=== PATIENT | male | born 1945 | race Caucasian/White ===

== ENCOUNTER 2023-12-25 08:40 | Outpatient (CLI) | payer BC, SELFPAY ==
--- NOTE | ~2023-12-25 | XR_ITS ---
Right Shoulder Technique: AP and scapular Y views were obtained. Clinical History: Pain Findings: No fracture or dislocation is seen. Osseous alignment is anatomic. The glenohumeral and acr omioclavicular joint spaces are preserved. Soft tissues are unremarkable. Impression: Unremarkable right shoulder radiographs. Reviewed, dictated and finalized at [facility]. Impression: Unremarkable right shoulder radiographs.
== END 2023-12-25 08:41 | disposition home or self-care (01) ==
PROVIDERS: Visit Provider Orthopaedic Surgery
DX: M25.511 Pain in right shoulder (principal)
CPT/HCPCS: 73030

== ENCOUNTER 2024-01-14 09:49 | Outpatient (CLI) | payer BC, SELFPAY ==
--- NOTE | ~2024-01-14 | MR_ITS ---
EXAMINATION: MR shoulder RT wo con DATE: 01/14/2024 10:33 INDICATION: Right shoulder pain. TECHNIQUE: Magnetic resonance imaging (MRI) of the right shoulder was performed without intravenous c ontrast. Sequences included axial PD-weighted FS FSE, coronal oblique PD-weighted FS FSE and T2-weigh yarelis FS FSE, and sagittal oblique T2-weighted FS FSE and T1-weighted FSE. COMPARISON: Right shoulder radiographs 12/25/2023 FINDINGS: Coracoacromial arch: The acromion undersurface is curved in morphology (type II). There is severe acromioclavicular joint osteoarthritis including inferiorly directed osteophytes. Subacromial spurring is noted. There is mod erate subacromial/subdeltoid bursitis. Rotator cuff: There is an articular sided partial thickness tear of supraspinatus and infraspinatus tendons measuri ng 2.0 cm anterior to posterior by 2.1 cm proximal to distal by up to 80% tendon thickness. Teres min or tendon is normal. There is mild subscapularis tendinopathy. There is no asymmetric fatty atrophy o f the rotator cuff muscle bellies. Biceps tendon and glenoid labrum: Biceps tendon is in bicipital groove. There is a partial tear of biceps tendon. There is degenerative tearing of the superior and posterior labrum (SLAP tear). Fluid: There is a small glenohumeral joint effusion. Bones/cartilage: There is cartilage surface irregularity of glenoid and humeral head. IMPRESSION: 1. Articular-sided, partial-thickness tear of supraspinatus and infraspinatus tendons. 2. Mild glenohumeral joint chondrosis. 3. Severe acromioclavicular joint osteoarthritis. 4. Partial tear of proximal biceps tendon. 5. Small glenohumeral joint effusion. 6. Moderate subacromial/subdeltoid bursitis. Reviewed, dictated and finalized at location [facility]. IMPRESSION: 1. Articular-sided, partial-thickness tear of supraspinatus and infraspinatus t endons. 2. Mild glenohumeral joint chondrosis. 3. Severe acromioclavicular joint osteoarthritis. 4. Partial tear of proximal biceps tendon. 5. Small glenohumeral joint effusion. 6. Moderate subacromial/subdeltoid bursitis.
== END 2024-01-14 09:50 | disposition home or self-care (01) ==
LOC: MICIMG 09:50
PROVIDERS: Visit Provider Orthopaedic Surgery
DX: M19.011 Primary osteoarthritis, right shoulder (principal); M25.411 Effusion, right shoulder; M75.51 Bursitis of right shoulder; S46.211D Strain of muscle, fascia and tendon of other parts of biceps, right arm, subsequent encounter; X58.XXXD Exposure to other specified factors, subsequent encounter
CPT/HCPCS: 73221

== ENCOUNTER 2024-08-07 07:49 | Outpatient (CLI) | payer BC, SELFPAY ==
--- OUTSIDE RECORDS SUMMARY | 2024-08-07 07:52 | XMS_ITS | Data Portability ---
Author Organization [facility] [employer], [facility] Address [address] [address] Care Team Providers Care Log Manager Name Role Phone MARYKARONYAKELIN Primary Care Provider JOSE DANIEL STEINBERG Referring Provider [phone] Assessment Encounter Date Assessment Date Assessment LastModified by Organization Details LastModified Time 01/25/2017 01/25/2017 Patient is a good candidate for BMAC/fat autograft to bilateral knees. Patient given information regarding same. May follow-up if he wishes to pursue. Return for worsening symptoms. Greater than 45 minutes was spent with the patient in direct evaluation and subse quent care planning. [email or web address] Not available 01/25/2017 14:00:49 Plan of Treatment Reminders Order Date Submit Date Provider Last Modified By Organization Details Last Modified Time Details Appointments None record ed. Lab None record ed. Referral None record ed. Procedures None record ed. Surgeries None record ed. Imaging None record ed. Medication Orders None record ed. Patient TargetsNo targets recorded. Patient Instructions Encounter Date Encounter Id Patient Instructions Last Modified By Organization Details Last Modified Time 01/25/2017 [id number] knee arthritis: care instructions Not available 01/30/2017 08:55:02 knee pain or injury: care instructions Not available 01/30/2017 08:55:01 Reason for Referral None Reported. Results Created Date Observation Date Name Description Value Unit Range Abnormal Flag Note LastModifiedBy Organization Detail LastModifiedTime 01/26/20 17 XR, knee No observ ation record ed. [email or web address] Not Available 02/12 12:43:07 01/26/20 17 06/19/2016 XR, knee No observ ation record ed. [email or web address] Not Available 2016 09:07:57 Result Notes None recorded. Problems No Known Problems Procedures Surgical History Date Name Laterality Status Provider Name and Address Organization Details Recorded Time 01/26/20 17 Generic Procedure completed KASANDRA SEPULVEDA PA-C [address], [place], [address], [facility] 01/25/2017 17:13:08 03/19/18 54 Appendectomy completed Erica Rogers [employer] [facility] 01/25/2017 13:36:25 Imaging Results Imaging Date Name Status LastModified by Organiz ation Details LastModified Time 01/25/2017 XR, knee completed [email or web address] Information no t available 02/12/2017 12:43:07 06/19/2016 XR, knee completed [email or web address] Information no t available 01/29/2017 09:07:57 Procedure Notes None recorded. Medical Equipment None Reported. Allergies No known drug allergies Medications Name Sig Start Date Stop Date Status Note LastModified by Organization Details LastModified Time GaviLyte-G 236 gram-22.74 gram-6.74 gram-5.86 gram oral solution active Not Available Not Available Not Available Vitals Date Recorded Body height Body mass index (BMI) Body weight Heart rate Systolic blood pressure Diastolic blood pressure Provider Name and Address Organization Details Last Updated DateTime 7 172.72 cm 25.8 kg/m2 85876.7 g 64 /min 125 mm[Hg] 73 mm[Hg] Eirca Rogers [employer] [facility] 7 13:34:49 Social History Question Answer Notes LastModified by [email or web address] Details LastModified Time Tobacco Smoking Status Never Smoker Erica graves [employer] [facility] 01/25/2017 13:35:31 Marital Status Informatio n not available 01/25/2017 What Was The Date Of Your Most Recent Tobacco Screening? 01/25/2017 Information n ot available 10/10/2018 How Much Tobacco Do You Smoke? No Information not available 01/25/2017 Sex: Unknown Functional Status Question Answer Note LastModified by [email or web address] Details LastModified Time What is your level of alcohol consumption? 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 Heavy Information not available 01/25/2017 Mental Status None recorded. Family History Relationship Description Onset Age of this Age Resolved Age Notes LastModified by Organization Details LastModified Time Father No current problems or disability [email or web address] Not available 01/25 13:35:19 Mother No current problems or disability [email or web address] Not available 01/25 13:35:19 Medical History Condition Response HIV or AIDS N Coronary Artery Disease N Gout N Kidney Stones N Hyperthyroidism N Head Trauma/Injury N Hernia N Hypothyroidism N Depression N COPD N Blood Clots N Lung Disease N Pacemaker N Anxiety Disorder N Arthritis Y Cancer N Stroke N Neck Injury N Leg or Foot Ulcers N High Cholesterol N Liver Disease N Rheumatoid Arthritis N Headaches N Fibromyalgia N Kidney Disease N Heart Problems N Migraines N Thyroid Problems N Anemia N Multiple Sclerosis N Ulcers N Heart Attack ([place]) N Diabetes N Bleeding Disorder N Seizures/Epilepsy N Tuberculosis N Urinary Tract Infection N Back Problems N Diverticulitis N Asthma N Lupus N Peripheral Vascular Disease N Sleep Disorder N GERD/Reflux N Hepatitis N Aneurysm N Heart Disease N Pulmonary Embolism N Hypertension N Osteoporosis N Past Encounters Encounter ID Performer Location Encounter Start Date Encounter Closed Date Diagnosis/Indication Diagnosis SNOMED-CT Code Diagnosis ICD10 Code Diagnosis Note [id number] Jose Daniel Steinberg MD [facility] [address] [facility] ,[address] [place] [address] 01/25/2017 12:49:29 01/25/2017 14:41:16 Knee pain 50407050 M25.561 M25.562 Osteoarthr itis of knee 150780647 M17.0 Derangemen t of medial meniscus 028250518 M23.231 M23.232 Health Concerns Section Related Observation LastModified by Organization Detai ls LastModified Time None Recorded Concern Status LastModified by Organization Details LastModified Time None Recorded Advance Directives Directive None Recorded Payers Encounter Date Sequence Insurance Name Policy Number Policy Talbot Covered Member ID Talbot Member ID Guarantor Name 01/25/2017 1 [place] [employer] [id number] Devon Nieves [id number] Devon Nieves Notes Date Note Type Note Provider Name and Address Organization Details Recorded Time 01/25/2017 text/html Patient is presenting with complaints of knee pain for several years. He states the pain is most significant with standing and ambulation. 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 He reports pain is more significant with activity than at night. He also reports limited ROM in the knees R>L. VAS 09/25. KASANDRA SEPULVEDA PA-C [address], [place], [address], [facility], [facility] 01/25/2017 18:43:48
--- OUTSIDE RECORDS SUMMARY | 2024-08-07 07:52 | XMS_ITS | Clinical Summary ---
Author Organization [facility] Address [address] [facility] [address] [place] [address] Phone Care Team Providers Care Tnt Powder Worker Name Role Phone Eagle Davis MD Primary Care Provider [phone] [phone] Allergies No known active allergies Medications No known medications Active Problems No known active problems Encounters Date Type Department Care Team Description 08/05/2024 External Device Data [facility] ABSTRACTION Provider, Abstract 06/04/2024 External Device Data [facility] ABSTRACTION Provider, Abstract 05/24/2024 External Device Data [facility] ABSTRACTION Provider, Abstract 05/23/2024 External Device Data [facility] ABSTRACTION Provider, Abstract from Last 3 Months Social History Tobacco Use Types Packs/Day Years Used Date Smoking Tobacco: Never Smokeless Tobacco: Never Alcohol Use Standard Drinks/Week Comments Not Currently 0 (1 standard drink = 0.6 oz pur e alcohol) Sex and Gender Information Value Date Recorded Sex Assigned at Male 12/20/2023 1:35 PM CDT Legal Sex 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 Gender Identity Male 12/20/2023 1:35 PM CDT Sexual Orientation Straight 12/20/2023 1: 35 PM CDT Last Filed Vital Signs Vital Sign Reading Time Taken Comments Blood Pressure 120/62 12/20/2023 9:04 AM CDT Pulse 70 12/20/2023 9:04 AM CDT Temperature - - Respiratory Rate - - Oxygen Saturation 97% 12/20/2023 9:04 AM CDT Inhaled Oxygen Concentration - - Weight 83.5 kg (184 lb) 12/20/2023 9:04 AM CDT Height 172.7 cm (5' 8 ) 12/20/2023 9:04 AM CDT Body Mass Index 27.98 12/20/2023 9:04 AM CDT Plan of Treatment Health Maintenance Due Date Last Done Comments PNEUMOCOCCAL VACCINE 50+ YEA RS (1 of 1 - PCV) 06/26/1993 ZOSTER VACCINE (1 of 2) 06/26/1993 RSV VACCINE (60+ or ) (1 - 1-dose 75+ series) 06/26/2018 INFLUENZA VACCINE (#1) 2023 DTAP/TDAP/TD VACCINES (3 - Td or Tdap) 05/17/2026, 07/14/2011 Insurance Care Teams Tnt Powder Worker Relationship Specialty Start Date End Date Eagle Davis MD [facility] [address] PCP - General Internal Medicine 12/20/23
--- OUTSIDE RECORDS SUMMARY | 2024-08-07 07:52 | XMS_ITS | Referral Summary ---
Author Organization [facility] Address [address] [address] Care Team Providers Care Retail Commission Sales Associate Name Role Phone Eagle Davis MD Primary Care Provider + Allergies No known active allergies Medications aspirin 325 mg tablet Take 325 mg by mouth daily Active Active Problems Problem Noted Date Diagnosed Date Benign prostatic hyperplasia without lower urinary tract symptoms 06/24/2018 Seborrheic eczema 03/09/2014 Osteoarthritis 07/16/2012 Overview (06/22/2016): Osteoarthritis Cholelithiasis 07/16/2012 Overview (06/22/2016): Cholelithiasis Skin neoplasm 12/14/2011 Resolved Problems Problem Noted Date Diagnosed Date Resolved Date Melena 04/06/2020 04/09/2024 Overview (04/06/2020): Added automatically from request for surgery [id number] Assessment & Plan (04/06/2020 3:31 PM ANALYTICAL TECH): Patient with darker/black stools at times that started over the weekend. Denies BRBPR or rectal pain but will get sharp pain in umbilical region at times, not worse with food. Denies reflux or heartburn symptoms. Colonoscopy in October [address] Merritt that showed 6mm polyp that was adenomatous and recommend repeat in 5 years, also diverticulosis. Denies recent pepto bismol use or NSAIDs, change in diet. POCT FOBT today is faintly positive and stool appears darker on exam. He is mostly worried about colon cancer but also discussed how darker stools usually are coming from upper GI as well Will check labs and orders given for colonoscopy, EGD Will start trial of omeprazole X 2 weeks to see if there are improvement in symptoms along with blander foods Call if symptoms continue or worsen, will touch base when labs return BMI 27.0-27.9,adult 04/06/2020 04/09/19 25 Assessment & Plan (04/06/2020 3:28 PM ANALYTICAL TECH): BMI Follow-up includes: nutrition counseling and exercise counseling. Ear pain, left 09/18/2017 06/24/2018 Assessment & Plan (09/18/2017 1:58 PM CDT): No acute processes present on exam. 1.)Instructed patient on proper ear hygiene and avoidance of cotton tips. 2.)Patient advised to continue naproxen PRN for pain. 3.)Patient to call office if pain does not resolve. Preoperative examination 09/18/201710/2018 Assessment & Plan (09/18/2017 2:04 PM CDT): Patient is generally healthy without any major contraindications to surgery. 1.)ECG, CBC, and CMP will be obtained. 2.)Discussed options regarding obtaining second opinion on possible knee replacement. Knee pain 06/13/2016 04/09/2024 Assessment & Plan (09/18/2017 3:49 PM CDT): Patient is generally healthy without any major contraindications to surgery. 1.)ECG, CBC, and CMP will be obtained. 2.)ECG revealed normal sinus rhythm. 3.)Discussed options regarding obtaining second opinion on possible knee replacement. Left inguinal hernia 05/17/2016 018 Overview (06/22/2016): Left inguinal hernia Patient encounter status 05/17/201610/2018 Overview (06/22/2016): Annual physical exam Sciatica 05/19/2015 06/24/2018 Overview (06/22/2016): Sciatica of right side Immunizations Immunization Administration Dates Next Due DT 07/14/2011 Influenza, Unspecified 04/09/2024(Deferr ed: Patient Refused),01/26/2019(Deferred: Patient Refused),12/18/2015(Deferred: Patient Refused) Tdap 05/17/2016 Social History Tobacco Use Types Packs/Day Years Used Date Smoking Tobacco: Never Smokeless Tobacco: Never Alcohol Use Standard Drinks/Week Comments No 0 (1 standard drink = 0.6 oz pur e alcohol) PHQ-2 Answer Date Recorded PHQ-2 Total Score (If total score is 3 or more points, staff should administer the PHQ-9) 0 04/09/2024 Sex and Gender Information Value Date Recorded Sex Assigned at Not on file Legal Sex Male 6:20 PM ANALYTICAL TECH Gender Identity Not on file Sexual Orientation Not on file 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 Not on file Not on file Last Filed Vital Signs Vital Sign Reading Time Taken Comments Blood Pressure 124/82 04/09/2024 12:58 PM ANALYTICAL TECH Pulse 89 04/09/2024 12:58 PM ANALYTICAL TECH Temperature 36.3 C (97.4 F) 01/12/2020 12:29 PM CDT Respiratory Rate 16 09/18/2017 1:13 PM CDT Oxygen Saturation 98% 04/09/2024 12:58 PM ANALYTICAL TECH Inhaled Oxygen Concentration - - Weight 85.5 kg (188 lb 6.4 oz) 04/09/2024 12:58 PM ANALYTICAL TECH Height 175.3 cm (5' 9 ) 04/09/2024 12:58 PM ANALYTICAL TECH Body Mass Index 27.82 04/09/2024 12:58 PM ANALYTICAL TECH Plan of Treatment Not on file Insurance MEDICARE MEDICARE [facility] MEDICARE Care Teams Retail Commission Sales Associate Relationship Specialty Start Date End Date Eagle Davis MD [address] [address] PCP - General 06/16/16
--- OUTSIDE RECORDS SUMMARY | 2024-08-07 07:52 | XMS_ITS | Encounter Summary ---
Author Organization [facility] Address [address] [place] [address] Care Team Providers Care Refining Still Operator Name Role Phone Eagle Davis MD Primary Care Provider [phone] [phone] Encounter Details Date Type Department Care Team (Late st Contact Info) Description 08/05/2024 External Device Data [facility] ABSTRACTION Provider, Abstract NO ADDRESS ON FILE Social History Tobacco Use Types Packs/Day Years Used Date Smoking Tobacco: Never Smokeless Tobacco: Never Alcohol Use Standard Drinks/Week Comments Not Currently 0 (1 standard drink = 0.6 oz pur e alcohol) Sex and Gender Information Value Date Recorded Sex Assigned at Male 12/20/2023 1:35 PM CDT 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
--- OUTSIDE RECORDS SUMMARY | 2024-08-07 07:52 | XMS_ITS | Encounter Summary ---
Author Organization [facility] Address [address] [place] [address] Phone Care Team Providers Care Morning Caregiver Name Role Phone Eagle Davis MD Primary Care Provider + Encounter Details Date Type Department Care Team (Late st Contact Info) Description 04/30/2017 Orders Only [facility] ProviderGhassan MD [address] [place], [place] [id number] Social History Tobacco Use Types Packs/Day Years Used Date Smoking Tobacco: Never Assessed Alcohol Use Standard Drinks/Week Comments No 0 (1 standard drink = 0.6 oz pur e alcohol) Sex and Gender Information Value Date Recorded Sex Assigned at Not on file Legal Sex Male 6:20 PM CUSTOMER ENGINEER Gender Identity Not on file Sexual Orientation Not on file documented as of this encounter Plan of Treatment Not on file documented as of this encounter Procedures Procedure Name Priority Date/Time Associated Diagnosis Comments DISCHARGE LABORATORY CUMULATIVE REPORT 04/30/2017 12:00 AM CUSTOMER ENGINEER documented in this encounter Results * DISCHARGE LABORATORY CUMULATIVE REPORT (04/30/2017 12:00 AM CUSTOMER ENGINEER) Narrative 04/30/2017 12:00 AM CUSTOMER ENGINEER Ordered by an unspecified provider. Historical Provider LAB BLOOD ORDERABLES Shae l Result documented in this encounter Visit Diagnoses Not on filedocumented in this encounter Care Teams Morning Caregiver Relationship Specialty Start Date End Date Eagle Davis MD [address] [address] PCP - General 06/16/16 documented as of this encounter
--- OUTSIDE RECORDS SUMMARY | 2024-08-07 07:52 | XMS_ITS | Clinical Summary ---
Author Organization [facility] Address [address] [address] Care Team Providers Care Valver Name Role Phone Eagle Davis MD Primary [...] (04/06/2020): Added automatically from request for surgery [id number] Assessment & Plan (04/06/2020 3:31 PM MIDDLE SCHOOL BASEBALL COACH): Patient with darker/black stools at times that [...] 25 Assessment & Plan (04/06/2020 3:28 PM MIDDLE SCHOOL BASEBALL COACH): BMI Follow-up includes: nutrition counseling and exercise [...] Refused),01/26/2019(Deferred: Patient Refused),12/18/2015(Deferred: Patient Refused) Tdap 05/17/2016 Surgical History Surgery Date Site/Laterality Comments APPENDECTOMY 03/19/1952 - 03/18/1953 Appendectomy TONSILLECTOMY Tonsillectomy Family History Medical History Relation Name Comments Car Accident Father accident; Osteoarthritis Mother Osteoarthriti s; Other Mother Alive and well; Relation Name Status Comments Father Mother Alive Social History Tobacco Use Types Packs/Day Years [...] on file Legal Sex Male 6:20 PM MIDDLE SCHOOL BASEBALL COACH Gender Identity Not on file Sexual Orientation Not on file 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 Not on file Not on file Obstetrics History Last Filed Vital Signs Vital Sign Reading Time Taken Comments Blood Pressure 124/82 04/09/2024 12:58 PM MIDDLE SCHOOL BASEBALL COACH Pulse 89 04/09/2024 12:58 PM MIDDLE SCHOOL BASEBALL COACH Temperature 36.3 C (97.4 F) 01/12/2020 12:29 PM CDT Respiratory Rate 16 09/18/2017 1:13 PM CDT Oxygen Saturation 98% 04/09/2024 12:58 PM MIDDLE SCHOOL BASEBALL COACH Inhaled Oxygen Concentration - - Weight 85.5 kg (188 lb 6.4 oz) 04/09/2024 12:58 PM MIDDLE SCHOOL BASEBALL COACH Height 175.3 cm (5' 9 ) 04/09/2024 12:58 PM MIDDLE SCHOOL BASEBALL COACH Body Mass Index 27.82 04/09/2024 12:58 PM MIDDLE SCHOOL BASEBALL COACH Plan of Treatment Health Maintenance Due Date Last Done Comments Hepatitis B Screening 06/26/1963 Pneumococcal vaccine 65+ (1 of 1 - PCV) 06/26/1993 Zoster Vaccine (1 of 2) 06/26/1993 Influenza Vaccine (Season Ended) 2024 Depression Screening 04/09/2025 04/09/2024, 04/06/2020, 01/27/2020, Additional history exists Fall Risk Assessment 04/09/2025 04/09/2024, 04/06/2020, 01/27/2020, Additional history exists Well Visit 65+ 04/09/2025 04/09/2024, 01/17, 06/24/2018 DTaP/Tdap/Td Vaccine (3 - Td or Tdap) 05/17/2026 05/17/2016, 07/14/2011 Insurance MEDICARE MEDICARE [facility] FEDERAL MEDICARE Care Teams Valver Relationship Specialty Start Date End Date Eagle Davis MD [address] [address] PCP - General 06/16/16
== END 2024-08-07 07:50 | disposition home or self-care (01) ==
LOC: ANHAUDASC 07:50
PROVIDERS: Visit Provider Otolaryngology
DX: H74.22 Discontinuity and dislocation of left ear ossicles (principal); H90.12 Conductive hearing loss, unilateral, left ear, with unrestricted hearing on the contralateral side; H61.22 Impacted cerumen, left ear; K21.9 Gastro-esophageal reflux disease without esophagitis
CPT/HCPCS: 92557